=== PATIENT | male | born 1975 | race Caucasian/White ===

== ENCOUNTER 2017-10-21 18:22 | Emergency (ER) | payer OTHER | END 2017-10-21 20:14 | disposition home or self-care (01) | LOC: E/R 18:22 | DX: S60.222A Contusion of left hand, initial encounter (principal); S93.601A Unspecified sprain of right foot, initial encounter; I10 Essential (primary) hypertension; X58.XXXA Exposure to other specified factors, initial encounter; Y92.9 Unspecified place or not applicable | CPT/HCPCS: 73130; 73130-LT; 73630; 99284-25 ==